=== PATIENT | male | born 1965 | race Caucasian/White ===

== ENCOUNTER 2017-04-26 17:17 | Emergency (ER) | payer OTHER ==
[~2017-04-26] VITALS: Ht 182.9 cm; Wt 100.0 kg
[~2017-04-26 17:17] MED LIST: ASPI-535; CLOP75TA19; CRESTOR; LOSA25TA2; METO100T PO
[2017-04-26 17:22] VITALS: Ht 182.9 cm; Wt 100.0 kg
[2017-04-26] MEDS ORDERED: CLIN-73 PO (19:05)
[2017-04-26] MEDS ORDERED: OXYC-209 PO (19:05)
--- NOTE | 2017-04-26 19:13 | ERD ---
ER Documentation Chief Complaint Date/Time DATE: 04/26/17 TIME: 19:09 Chief Complaint Patient here for a medication refill HPI 51-year-old male presents here in emergency department for medication refill, patient has an appointment today for possible refill of his pain medication, is currently taking Percocet for chronic cellulitis, patient has been treated with oral antibiotics, still has half of these antibiotics to home to take. Patient has been seen by wound clinic multiple times, last appointments were last week and this afternoon. Patient's lower extremity pain is chronic pain, throbbing pain 6/10 worse upon touching the area. Patient states that his cellulitis has completely improved after multiple rounds of antibiotics, and the swelling has greatly decreased. ROS All systems reviewed and are negative except as per history of present illness. Medications Home Meds Active Scripts Clindamycin Hcl* (Clindamycin Hcl*) 300 Mg Capsule, 300 MG PO TID for 10 Days, CAP Prov:ESE VIDES NP 04/26/17 Oxycodone HCl/Acetaminophen (Percocet 10-325 mg Tablet) 1 Each Tablet, 1 EACH PO Q6, #15 TAB Prov:ESE VIDES NP 04/26/17 Reported Medications Metoprolol (Lopressor) 100 Mg Tablet, PO BID 03/20/12 [Crestor] 10 MG TABLET No Conflict Check 06/20/10 Losartan Potassium* (Cozaar*) 25 Mg Tablet 06/20/10 Aspirin Ec (Aspir 81) 81 Mg Tablet. 06/20/10 Clopidogrel Bisulfate (Plavix) 75 Mg Tablet 06/20/10 Allergies Allergies: Coded Allergies: benazepril (Verified Allergy, Unknown, 03/20/12) clonidine (Verified Allergy, Unknown, 03/20/12) morphine (Verified Allergy, Unknown, 03/20/12) Uncoded Allergies: HYDRALAZINE (Allergy, Unknown, 06/20/10) PMhx/Soc History of Surgery: Yes (CABG AUG 2011,HEART CATH 2009,PTCA) Anesthesia Reaction: No Hx Neurological Disorder: No Hx Respiratory Disorders: No Hx Cardiac Disorders: Yes (AL,X6) Hx Psychiatric Problems: No Hx Miscellaneous Medical Probl: No Hx Alcohol Use: No Hx Substance Use: No Hx Tobacco Use: No Smoking Status: Never smoker FmHx Family History: No coronary disease, No diabetes, No other Physical Exam Vitals Vital Signs Date Time Temp Pulse Resp B/P Pulse Ox O2 Delivery O2 Flow Rate FiO2 04/26/17 19:11 99 Room Air 04/26/17 17:22 98.4 101 20 124/84 92 Physical Exam GENERAL: The patient is well developed and appropriate for usual state of health, in no apparent distress. CHEST: Clear to auscultation bilaterally. There are no rales, wheezes or rhonchi. HEART: Regular rate and rhythm. No murmurs, clicks, rubs or gallops. No S3 or S4. ABDOMEN: Soft, nontender and nondistended. Good bowel sounds. No rebound or guarding. No gross peritonitis. No gross organomegaly or masses. No Tee sign or McBurney point tenderness. BACK: No midline or flank tenderness. EXTREMITIES: Equal pulses bilaterally. There is no peripheral clubbing, cyanosis or edema. No focal swelling or erythema. Full range of motion. Grossly neurovascularly intact. NEURO: Alert and oriented. Cranial nerves 2-12 intact. Motor strength in all 4 extremities with 5/5 strength. Sensation grossly intact. Normal speech and gait. SKIN: There is induration and erythema and lower extremities, some scabs are noted, healing wounds noted. There is no apparent rash or petechia. The skin is warm and dry. HEMATOLOGIC AND LYMPHATIC: There is no evidence of excessive bruising or lymphedema. No gross cervical, axillary, or inguinal lymphadenopathy. Procedures/MDM Medical decision making: Patient symptoms was likely consistent with chronic cellulitis, patient's pain was different from this. Patient will be given a refill of 15 pills of his Percocet, is advised to see hand touch up painter , and continue to follow-up with the wound care clinic for further management of his chronic cellulitis. Patient will be given clindamycin add on treatment of the cellulitis. No symptoms of any sepsis at this time, patient appears well and seemed in stable. Patient does not have any symptoms of neurovascular compromise. Patient was advised to return to emergency department for high fever , worsening redness or swelling, worsening symptoms. Patient was advised to follow-up with primary care doctor in 2-3 days, see hand touch up painter. Disposition: Home. Stable. Departure Diagnosis: Primary Impression: Chronic cellulitis Additional Impression: Encounter for medication refill Condition: Stable Patient Instructions: Cellulitis Referrals: COMMUNITY CLINICS YOU HAVE RECEIVED A MEDICAL SCREENING EXAM AND THE RESULTS INDICATE THAT YOU DO NOT HAVE A CONDITION THAT REQUIRES URGENT TREATMENT IN THE EMERGENCY DEPARTMENT. FURTHER EVALUATION AND TREATMENT OF YOUR CONDITION CAN WAIT UNTIL YOU ARE SEEN IN YOUR DOCTORS OFFICE WITHIN THE NEXT 1-2 DAYS. IT IS YOUR RESPONSIBILITY TO MAKE AN APPOINTMENT FOR FOLOW-UP CARE. IF YOU HAVE A PRIMARY DOCTOR --you should call your primary doctor and schedule an appointment IF YOU DO NOT HAVE A PRIMARY DOCTOR YOU CAN CALL OUR PHYSICIAN REFERRAL HOTLINE AT IF YOU CAN NOT AFFORD TO SEE A PHYSICIAN YOU CAN CHOSE FROM THE FOLLOWING [facility] [address] [facility] [address] [facility] [address] [facility] [address] [facility] [address] [facility]. [facility] [address] [facility]. [facility] YOU HAVE RECEIVED A MEDICAL SCREENING EXAM AND THE RESULTS INDICATE THAT YOU DO NOT HAVE A CONDITION THAT REQUIRES URGENT TREATMENT IN THE EMERGENCY DEPARTMENT. FURTHER EVALUATION AND TREATMENT OF YOUR CONDITION CAN WAIT UNTIL YOU ARE SEEN IN YOUR DOCTORS OFFICE WITHIN THE NEXT 1-2 DAYS. IT IS YOUR RESPONSIBILITY TO MAKE AN APPOINTMENT FOR FOLOW-UP CARE. IF YOU HAVE A PRIMARY DOCTOR --you should call your primary doctor and schedule and appointment IF YOU DO NOT HAVE A PRIMARY DOCTOR YOU CAN CALL OUR PHYSICIAN REFERRAL HOTLINE AT . IF YOU CAN NOT AFFORD TO SEE A PHYSICIAN YOU CAN CHOSE FROM THE FOLLOWING [facility]: [facility] [address] [place] [address] [facility] [address] [place] [address] [facility] [address] [place] [address] ESE VIDES NP Apr 26, 2017 19:13
== END 2017-04-26 19:57 | disposition home or self-care (01) ==
LOC: FTE 17:17
DX: L03.116 Cellulitis of left lower limb (principal); L03.115 Cellulitis of right lower limb; Z79.01 Long term (current) use of anticoagulants; Z79.82 Long term (current) use of aspirin; Z95.1 Presence of aortocoronary bypass graft
CPT/HCPCS: 99281

== ENCOUNTER 2017-05-05 22:55 | Emergency (ER) | END 2017-05-06 01:43 | disposition home or self-care (01) | DX: G89.4 Chronic pain syndrome (principal); L03.116 Cellulitis of left lower limb; L03.115 Cellulitis of right lower limb; I10 Essential (primary) hypertension; I25.10 Atherosclerotic heart disease of native coronary artery without angina pectoris; Z79.01 Long term (current) use of anticoagulants; Z79.82 Long term (current) use of aspirin; Z95.1 Presence of aortocoronary bypass graft | CPT/HCPCS: Z7502; Z7610 ==

== ENCOUNTER 2017-05-08 23:19 | Inpatient (IN) | payer OTHER ==
[~2017-05-08] VITALS: Ht 182.9 cm; Wt 98.5 kg
[~2017-05-08 23:19] MED LIST changes: +CLIN-73 PO; +METO-104; +OXYC-209 PO
[2017-05-09] VITALS (11 sets, daily range): BP systolic 96–118; BP diastolic 56–84; PULSE 77–101; RESP 16–20; Ht 182.9 cm; Wt 98.5 kg
[2017-05-09] MEDS ORDERED: ACETAMINOPHEN 325 MG TAB PO PRN (03:30)
[2017-05-09] MEDS ORDERED: LEVALBUTEROL (NEB) 0.63 MG/3 ML AMP HHN PRN (03:30)
[2017-05-09] MEDS ORDERED: ONDANSETRON 4 MG INJ IV PRN (03:30)
[2017-05-09] MEDS ORDERED: NACL 0.9% 3 ML SYG IV SCH (03:30)
[2017-05-09] MEDS ORDERED: VANCOMYCIN IV PER PHARMACY XX SCH (03:30)
[2017-05-09] MEDS ORDERED: NITROGLYCERIN (SL) 0.4 MG TAB SL PRN (03:30)
[2017-05-09] MEDS ORDERED: IPRATROPIUM (NEB) 0.5 MG/2.5 ML AMP NEB PRN (03:30)
[2017-05-09] MEDS ORDERED: VANCOMYCIN 2 GM in SOD CHLORIDE 0.9% 500 ML IVPB SCH (05:00)
[2017-05-09] MEDS: OXYCODONE/ACETAMINOPHEN (10/325) TAB PO PRN ×3 (05:20→20:22)
--- NOTE | 2017-05-09 07:02 | HP ---
Date/Time of Note Date/Time of Note DATE: 05/09/17 TIME: 06:45 Assessment/Plan VTE Prophylaxis VTE Prophylaxis Intervention: heparin Lines/Catheters IV Catheter Type (from [facility]): [place] Urinary Cath still in place: No Assessment/Plan Assessment/Plan 1. Bilateral lower extremity cellulitis -IV antibiotic -Follow-up culture results -ID consult -Pain management 2. History of CAD with CABG as well as PTCA with stent 7 -Continue cardiac medications including dual antiplatelet therapy -2D echo -Cardiology consult 3. Ischemic cardiomyopathy, with EF of 25-30% (per patient) -Continue cardiac medications -We will start Lasix -Chest x-ray and a 2D echo -Cardiology consult 4. Acute versus chronic kidney disease -Creatinine 1.43 at the outside hospital - will check BMP in a.m. -Renal ultrasound and nephrology consult as needed HPI/ROS Admit Date/Time Admit Date/Time May 09, 2017 at 02:20 Hx of Present Illness This is a 51-year-old male with a history of CAD with CABG, PTCA with stent 7, ischemic cardiomyopathy with EF of 25-30% (per patient). Patient initially presented to an outside hospital complaining of bilateral lower extremity infection, pain and itching. He was transferred to [facility] for insurance reasons. He said in July of last year, he noticed redness, scaling as well as open wounds with yellowish draining fluid in the proximal part of both shins that has been progressively getting worse and now includes the entire shins. He said he has been treated by different doctors ( mainly because of insurance reasons) with initial improvement of the infection, however now it has been progressively getting worse. He was diagnosed with a staph infection. He reported pain and intractable itching which he states only responds to [place] or similar medication but not Benadryl. Because of pain, he has been using a wheelchair. At the outside hospital, labs shows a BUN of 21, creatinine 1.43. He was afebrile and her WBC was 7.2. Chest x-ray, per the ER physician showed pulmonary vascular congestion. BNP was 1608. He reported chronic shortness of breath is, worse on exertion. Denied chest pain, fever/chills, nausea/vomiting. . PMH/Family/Social Past Medical History Medical History: congestive heart failure, coronary artery disease Past Surgical History Past Surgical Hx: coronary bypass surgery Social History Alcohol Use: none Smoking Status: Never smoker Drug Use: none Exam/Review of Systems Vital Signs Vitals Vital Signs Date Time Temp Pulse Resp B/P Pulse Ox O2 Delivery O2 Flow Rate FiO2 05/09/17 04:13 95 05/09/17 04:09 98.2 19 112/64 95 05/09/17 02:41 Room Air Intake and Output 05/08/17 05/08/17 05/09/17 15:00 23:00 07:00 Intake Total 150 ml Output Total 150 ml Balance 0 ml Exam Constitutional: other (Patient sitting at the age of bed. He looks in distress due to lower extremity pain and itching) Head: atraumatic, normocephalic Eyes: EOMI, PERRL Respiratory: clear to auscultation, normal air movement Cardiovascular: nl pulses, regular rate and rhythm Gastrointestinal: non-tender, soft Extremities: other (Bilateral lower extremity pains pitting edema as well as erythema with excoriation, scaling, weeping yellowish fluid) Medications Medications Current Medications Ondansetron HCl (Zofran Inj) 4 mg Q6H PRN IV NAUSEA AND/OR VOMITING; Start at 03:30 Nitroglycerin (Nitroglycerin (Sl Tab) 0.4 Mg) 1 tab Q5M PRN SL CHEST PAIN; Start 05/09/17 at 03:30 Acetaminophen (Tylenol Tab) 650 mg Q6H PRN PO PAIN LEVEL 1-3 OR FEVER; Start at 03:30 Magnesium Hydroxide (Milk Of Mag) 30 ml DAILY PRN PO CONSTIPATION; Start at 03:30 Heparin Sodium (Porcine) (Heparin (5000 Units/0.5 ml)) 5,000 unit Q12 SC ; Start 05/09/17 at 09:00 Aspirin (Halfprin) 81 mg DAILY PO ; Start 05/09/17 at 09:00 Clopidogrel Bisulfate (plaVIX) 75 mg DAILY PO ; Start 05/09/17 at 09:00 Losartan Potassium (Cozaar) 25 mg DAILY PO ; Start 05/09/17 at 09:00 Metoprolol Tartrate (Lopressor) 25 mg BID PO ; Start 05/09/17 at 09:00 Oxycodone/ Acetaminophen (Endocet (10/ 325)) 1 tab Q6H PRN PO PAIN Last administered on 05/09/17 05:20; Admin Dose 1 TAB; Start 05/09/17 at 04:00 Furosemide (Lasix) 20 mg DAILY PO ; Start 05/09/17 at 09:00 Atorvastatin Calcium 20 mg 20 mg HS PO ; Start 05/09/17 at 21:00 Vancomycin HCl/ Sodium Chloride (Vancocin/NS) 500 ml @ 125 mls/hr ONCE IVPB Last administered on 05/09/17 05:49; Admin Dose 125 MLS/HR; Start 05/09/17 at 05:00; Stop 05/09/17 at 08:59 AJAY PORTILLO MD May 09, 2017 06:57
[2017-05-09 07:51] LABS: BASOPHIL # 0.1 10^3/ul (0.0-0.1); BASOPHILS % 0.7 % (0.0-2.0); EOSINOPHILS # 0.2 10^3/ul (0.0-0.5); EOSINOPHILS % 2.2 % (0.0-7.0); HEMATOCRIT 44.1 % (42.0-52.0); HEMOGLOBIN 13.4 g/dl (14.0-18.0); LYMPHOCYTES # 1.9 10^3/ul (0.8-2.9); LYMPHOCYTES % 28.2 % (15.0-51.0); MEAN CORPUSCULAR HEMOGLOBIN 24.5 pg (29.0-33.0); MEAN CORPUSCULAR HGB CONC 30.4 g/dl (32.0-37.0); MEAN CORPUSCULAR VOLUME 80.8 fl (82.0-101.0); MONOCYTES % 13.9 % (0.0-11.0); NEUTROPHILS % 54.7 % (39.0-77.0); PLATELET COUNT 276 10^3/UL (140-415); RED BLOOD COUNT 5.46 10^6/ul (4.70-6.10); RED CELL DISTRIBUTION WIDTH 17.3 % (11.5-14.5); WHITE BLOOD COUNT 6.8 10^3/ul (4.8-10.8)
[2017-05-09 08:16] LABS: ALANINE AMINOTRANSFERASE 19 IU/L (13-69); ALBUMIN 3.4 g/dl (3.3-4.9); ALBUMIN/GLOBULIN RATIO 0.82; ALKALINE PHOSPHATASE 146 IU/L (42-121); ANION GAP 19 (8-16); ASPARTATE AMINO TRANSFERASE 21 IU/L (15-46); BILIRUBIN,INDIRECT 0.8 mg/dl (0-1.1); BILIRUBIN,TOTAL 0.8 mg/dl (0.2-1.3); BLOOD UREA NITROGEN 24 mg/dl (7-20); CARBON DIOXIDE 36 mmol/L (21-31); CHLORIDE 89 mmol/L (97-110); CHOL/HDL RATIO 5.3 RATIO; CHOLESTEROL 86 mg/dl (100-200); CREATININE 1.26 mg/dl (0.61-1.24); GLUCOSE 86 mg/dl (70-220); HDL CHOLESTEROL 16 mg/dl (28-71); MAGNESIUM 2.2 mg/dl (1.7-2.5); POTASSIUM 3.4 mmol/L (3.5-5.1); SODIUM 141 mmol/L (135-144); TOTAL PROTEIN 7.5 g/dl (6.1-8.1); TRIGLYCERIDES 89 mg/dl (0-149)
[2017-05-09 08:28] LABS: TROPONIN-I < 0.012 ng/ml (0.00-0.12)
[2017-05-09] MEDS: LOSARTAN 25 MG TAB PO SCH (08:48)
[2017-05-09] MEDS: ASPIRIN (EC) 81 MG TAB PO SCH (08:50)
[2017-05-09] MEDS: CLOPIDOGREL 75 MG TAB PO SCH (08:50)
[2017-05-09] MEDS: HEPARIN 5,000 UNIT/0.5 ML VIAL SC SCH ×2 (08:55→20:26)
[2017-05-09] MEDS ORDERED: METOPROLOL 100 MG TAB PO SCH (09:00)
[2017-05-09] MEDS ORDERED: FUROSEMIDE 20 MG TAB PO SCH (09:00)
[2017-05-09] MEDS ORDERED: ALBUMIN HUMAN 25% 50 ML IV ONE (09:30)
--- NOTE | 2017-05-09 11:41 | CONS ---
Date/Time of Note Date/Time of Note DATE: 05/09/17 TIME: 11:40 Consultation Date/Type/Reason Admit Date/Time May 09, 2017 at 02:20 Date of Consultation: May 09, 2017 Type of Consultation: ID Reason for Consultation antibiotic management Past Medical History Medical History: congestive heart failure, coronary artery disease Past Surgical History Past Surgical Hx: coronary bypass surgery Social History Alcohol Use: none Smoking Status: Never smoker Drug Use: none Exam/Review of Systems Vital Signs Vitals Vital Signs Date Time Temp Pulse Resp B/P Pulse Ox O2 Delivery O2 Flow Rate FiO2 05/09/17 08:30 100 05/09/17 07:46 98.4 20 118/84 98 05/09/17 02:41 Room Air Intake and Output 05/08/17 05/08/17 05/09/17 14:59 22:59 06:59 Intake Total 150 ml Output Total 150 ml Balance 0 ml Results Result Diagram: 05/09/17 0718 05/09/17 0718 Results 24 hrs Laboratory Tests Test 05/09/17 07:18 White Blood Count 6.8 Red Blood Count 5.46 Hemoglobin 13.4 L Hematocrit 44.1 Mean Corpuscular Volume 80.8 L Mean Corpuscular Hemoglobin 24.5 L Mean Corpuscular Hemoglobin Concent 30.4 L Red Cell Distribution Width 17.3 H Platelet Count 276 Mean Platelet Volume 10.0 Neutrophils % 54.7 Lymphocytes % 28.2 Monocytes % 13.9 H Eosinophils % 2.2 Basophils % 0.7 Nucleated Red Blood Cells % 0.0 Neutrophils # (Manual) 4 Lymphocytes # 1.9 Monocytes # 1.0 H Eosinophils # 0.2 Basophils # 0.1 Nucleated Red Blood Cells # 0.0 Sodium Level 141 Potassium Level 3.4 L Chloride Level 89 L Carbon Dioxide Level 36 H Anion Gap 19 H Blood Urea Nitrogen 24 H Creatinine 1.26 H Glucose Level 86 Hemoglobin A1c 6.2 H Calcium Level 9.0 Magnesium Level 2.2 Total Bilirubin 0.8 Direct Bilirubin 0.00 Indirect Bilirubin 0.8 Aspartate Amino Transf (AST/SGOT) 21 Alanine Aminotransferase (ALT/SGPT) 19 Alkaline Phosphatase 146 H Troponin I < 0.012 Total Protein 7.5 Albumin 3.4 Globulin 4.10 H Albumin/Globulin Ratio 0.82 Triglycerides Level 89 Cholesterol Level 86 L LDL Cholesterol, Calculated 52 HDL Cholesterol 16 L Cholesterol/HDL Ratio 5.3 Medications Medications Current Medications Ondansetron HCl (Zofran Inj) 4 mg Q6H PRN IV NAUSEA AND/OR VOMITING Last administered on 05/09/17 08:55; Admin Dose 4 MG; Start 05/09/17 at 03:30 Nitroglycerin (Nitroglycerin (Sl Tab) 0.4 Mg) 1 tab Q5M PRN SL CHEST PAIN; Start 05/09/17 at 03:30 Acetaminophen (Tylenol Tab) 650 mg Q6H PRN PO PAIN LEVEL 1-3 OR FEVER; Start at 03:30 Magnesium Hydroxide (Milk Of Mag) 30 ml DAILY PRN PO CONSTIPATION; Start at 03:30 Heparin Sodium (Porcine) (Heparin (5000 Units/0.5 ml)) 5,000 unit Q12 SC ; Start 05/09/17 at 09:00 Aspirin (Halfprin) 81 mg DAILY PO Last administered on 05/09/17 08:50; Admin Dose 81 MG; Start 05/09/17 at 09:00 Clopidogrel Bisulfate (plaVIX) 75 mg DAILY PO Last administered on 05/09/17 08 :50; Admin Dose 75 MG; Start 05/09/17 at 09:00 Losartan Potassium (Cozaar) 25 mg DAILY PO Last administered on 05/09/17 08:48 ; Admin Dose 25 MG; Start 05/09/17 at 09:00 Metoprolol Tartrate (Lopressor) 25 mg BID PO Last administered on 05/09/17 08: 48; Admin Dose 25 MG; Start 05/09/17 at 09:00 Oxycodone/ Acetaminophen (Endocet (10/ 325)) 1 tab Q6H PRN PO PAIN Last administered on 05/09/17 05:20; Admin Dose 1 TAB; Start 05/09/17 at 04:00 Atorvastatin Calcium 20 mg 20 mg HS PO ; Start 05/09/17 at 21:00 Vancomycin HCl/ Sodium Chloride (Vancocin/NS) 250 ml @ 83.333 mls/ hr Q12H IVPB ; Start 05/09/17 at 18:00 Miscellaneous Information VANCOMYCIN TROUGH AT 1700 ONCE ONCE XX ; Start 05/10/17 at 17:00; Stop 05/10/17 at 17:01 Cefepime HCl (Maxipime 1gm/50 ml (Pmx)) 50 ml @ 100 mls/hr Q12 IVPB ; Start at 10:30 JACKIE CROWLEY MD May 09, 2017 11:41
[2017-05-09] MEDS: CEFEPIME 1GM/50 ML (PMX) 50 ML IVPB SCH ×2 (12:32→20:23)
--- NOTE | 2017-05-09 12:36 | CONS ---
DATE OF ADMISSION: 05/09/2017 DATE OF CONSULTATION: 05/09/2017 REASON FOR CONSULTATION: Antibiotic management. HISTORY OF PRESENT ILLNESS: Tomi is a 51-year-old male with numerous problems who comes in with bilateral lower extremity cellulitis and is being seen for antibiotic management. PAST PROBLEMS INCLUDE: 1. Coronary artery disease. 2. Status post coronary artery bypass graft with PTCA with stents x7. 3. Ischemic cardiomyopathy with ejection fraction of 25-30 percent. 4. The patient initially presented to an outside hospital complaining of bilateral lower extremity infection with pain who was transferred to [facility]. Last July, he noticed some redness and scaling as well as open wounds with yellowish draining fluid in the proximal part of both shins. This has been getting progressively worse and now includes the entire area. He has been treated numerous times, but the infection has been getting progressively worse. He has been in a wheelchair as a result. In the outside hospital, his white count was 7.2. BUN and creatinine was 21/1.43. Here, hiss white count 6.8, H and H of 13.4, 44.1, platelet count 276,000. BUN and creatinine is 24/1.26. Microbiology is pending. Patient was started on vancomycin and cefepime. Patient is also on Lasix. PAST MEDICAL HISTORY: Operations as outlined. FAMILY HISTORY: Noncontributory. SOCIAL HISTORY: Does not smoke, drink, or abuse drugs. ALLERGIES: NONE TO PENICILLIN, SULFA, OR FOODS. MEDICATION: Per chart. REVIEW OF SYSTEMS: As per HPI. PHYSICAL EXAMINATION: GENERAL: Patient is a well-developed, well-nourished, chronically ill-appearing male, who looks somewhat in distress due to lower extremity pain. VITAL SIGNS: Stable. He is afebrile. SKIN: Without generalized rash. HEENT: Within normal limits. NECK: Supple. Lymph nodes nonpalpable. CHEST: Decreased breath sounds at the bases. HEART: Without murmur or gallop. ABDOMEN: Soft, nontender, without organomegaly, splenomegaly or masses. EXTREMITIES: He has bilateral lower extremity pain, pitting edema, erythema, excoriations scaling, weeping yellowish fluid. RECTAL/GENITAL: Deferred. NEUROLOGICAL: No focal neurological abnormalities. IMPRESSION AND PLAN: Patient comes in now with cardiomyopathy with swollen lower extremities, and with bilateral lower extremity cellulitis. He is on vancomycin and cefepime. At some point, we will just simplify his antibiotic therapy. For now, will continue. He should have wound cultures done, which were done which were ordered, and blood cultures were ordered. MRSA screen has been ordered. I will dictate my findings to the hospitalist and Dr. Reyes. Dictated By: Nacho Pedro MD JD/pepper/delfina /Document#: [id number]
--- NOTE | 2017-05-09 14:07 | EN ---
Date/Time of Note Date/Time of Note DATE: 05/09/17 TIME: 14:06 Event Note Medicine Medicine Event Note Follow-up as per directions of hospitals. The patient has a history of significant heart disease with an overwhelmingly positive family history of heart disease. Specifically no member of his family's live past 53. At this time he is 51 years of age. In addition the patient is suffering from a great deal of frustration and appears to have some significant dysthymia/depression. I am going to adjust his medications to try and get him using a regimen that he is at least seen before so is a bit more comfortable with the concept SALIMA LAZARO MD May 09, 2017 14:07
[2017-05-09] MEDS ORDERED: SPIRONOLACTONE 25 MG TAB PO ONE (14:30)
--- NOTE | 2017-05-09 17:23 | RADRPT ---
PROCEDURE: Chest radiograph CLINICAL INDICATION: Congestive heart failure. COMPARISON: None available for review. TECHNIQUE: PA and lateral views. FINDINGS: The right diaphragm is elevated but the right heart border remains sharp, findings which may be due to subpulmonic effusion. Right upper lung and left lungs are clear. Cardiomegaly. Median sternotomy with coronary arterial bypass grafts. At least two coronary stents have been placed. No suspicious bone lesion. IMPRESSION: Cardiomegaly with probable moderate sized right pleural effusion. RPTAT: PP Physician Tatiana Date Time Electronically viewed and signed by Physician Tatiana on 05/09/2017 17:23 LG/
[2017-05-09] MEDS: VANCOMYCIN 1.25 GM in SOD CHLORIDE 0.9% 250 ML IVPB SCH (18:11)
[2017-05-09] MEDS: FUROSEMIDE 20 MG TAB PO SCH (18:12)
[2017-05-09] MEDS: TERBINAFINE 250 MG TAB PO SCH (20:23)
[2017-05-09] MEDS: ATORVASTATIN 40 MG TAB PO SCH (20:23)
[2017-05-09] MEDS ORDERED: ATORVASTATIN 20 MG TAB PO SCH (21:00)
[2017-05-10] VITALS (13 sets, daily range): BP systolic 85–118; BP diastolic 50–76; PULSE 84–96; RESP 18–20
[2017-05-10] MEDS: OXYCODONE/ACETAMINOPHEN (10/325) TAB PO PRN ×3 (03:33→20:19)
[2017-05-10] MEDS: VANCOMYCIN 1.25 GM in SOD CHLORIDE 0.9% 250 ML IVPB SCH (05:09)
[2017-05-10] MEDS: FUROSEMIDE 20 MG TAB PO SCH ×2 (05:10→18:00)
[2017-05-10 08:14] LABS: HEMATOCRIT 41.8 % (42.0-52.0); HEMOGLOBIN 12.8 g/dl (14.0-18.0); MEAN CORPUSCULAR HEMOGLOBIN 24.6 pg (29.0-33.0); MEAN CORPUSCULAR HGB CONC 30.6 g/dl (32.0-37.0); MEAN CORPUSCULAR VOLUME 80.2 fl (82.0-101.0); PLATELET COUNT 291 10^3/UL (140-415); RED BLOOD COUNT 5.21 10^6/ul (4.70-6.10); RED CELL DISTRIBUTION WIDTH 17.3 % (11.5-14.5); WHITE BLOOD COUNT 7.8 10^3/ul (4.8-10.8)
[2017-05-10 08:15] LABS: BASOPHIL # 0.1 10^3/ul (0.0-0.1); BASOPHILS % 0.6 % (0.0-2.0); EOSINOPHILS # 0.2 10^3/ul (0.0-0.5); EOSINOPHILS % 2.5 % (0.0-7.0); LYMPHOCYTES # 1.4 10^3/ul (0.8-2.9); LYMPHOCYTES % 18.6 % (15.0-51.0); MEAN PLATELET VOLUME 9.9 fl (7.4-10.4); MONOCYTE # 1.1 10^3/ul (0.3-0.9); MONOCYTES % 13.5 % (0.0-11.0); NEUTROPHILS % 64.4 % (39.0-77.0)
[2017-05-10 08:25] LABS: CALCIUM 8.6 mg/dl (8.4-10.2); CREATININE 1.48 mg/dl (0.61-1.24); PHOSPHORUS 4.6 mg/dl (2.5-4.9); POTASSIUM 3.7 mmol/L (3.5-5.1)
[2017-05-10] MEDS: CEFEPIME 1GM/50 ML (PMX) 50 ML IVPB SCH (08:47)
[2017-05-10] MEDS: CLOPIDOGREL 75 MG TAB PO SCH (08:48)
[2017-05-10] MEDS: TERBINAFINE 250 MG TAB PO SCH ×2 (08:48→20:19)
[2017-05-10] MEDS: SPIRONOLACTONE 25 MG TAB PO SCH (08:52)
[2017-05-10] MEDS: LOSARTAN 25 MG TAB PO SCH (08:52)
[2017-05-10] MEDS: ASPIRIN (EC) 81 MG TAB PO SCH (08:53)
[2017-05-10] MEDS: HEPARIN 5,000 UNIT/0.5 ML VIAL SC SCH ×2 (09:00→20:25)
[2017-05-10] MEDS: MAGNESIUM HYDROXIDE 30ML CUP PO PRN (12:05)
--- NOTE | 2017-05-10 13:03 | RADRPT ---
Echocardiogram Report Patient Name: MITCHELL FLYNN Gender: Male Date: 1965 Study Date: 10-May-2017 Stopper Maker: marcus Murphy [facility] Location: 5560 Ref. Physician: AJAY PORTILLO Quality: Adequate Procedures: Transthoracic echocardiogram with complete 2D, M-Mode, and doppler examination. Indications: Stroke. 2D/M Mode Doppler Measurement Value Normal Ranges Measurement Value Normal Ranges LVIDd 2D 5.3 3.5 - 5.6 cm AV Peak Corey 1.2 m/sec LVIDs 2D 4.9 2.1 - 4.1 cm AV Peak PG 6.0 mmHg FS 2D 6.7 % LVOT Peak Corey 0.9 m/sec LVPWd 2D 1.3 0.6 - 1.1 cm LVOT Peak PG 3.0 mmHg IVSd 2D 1.3 0.6 - 1.1 cm MV E Peak Corey 1.3 m/sec IVS/LVPW 2D 1.0 MR Peak PG 65.0 mmHg AoR Diam 2D 2.6 2.0 - 3.7 cm MR Peak Corey 4.0 m/sec LA/Ao 2D 2 0 - 1 TR Peak Corey 2.5 m/sec EDV 2D 145.0 cm3 TR Peak PG 25.0 mmHg ESV 2D 118.0 cm3 RVSP 33.0 mmHg LA Dimen 2D 5.0 2.3 - 4.0 cm Findings Left Ventricle: Normal left ventricular systolic function. Normal left ventricular cavity size. Mild concentric left ventricular hypertrophy. Moderate global left ventricular systolic dysfunction. Ejection fraction is visually estimated at 30 %. Abnormal Diastolic Function. Right Ventricle: Moderate enlargement of right ventricle. Left Atrium: There is severe enlargement of left atrium. Right Atrium: There is severe enlargement of right atrium. Mitral Valve: Mild mitral leaflet calcification. Mild mitral annular calcification. Mild to moderate mitral valve regurgitation. Aortic Valve: Normal appearance of the aortic valve. No significant aortic stenosis or insufficiency. Tricuspid Valve: Normal appearance of the tricuspid valve. Estimated peak PA systolic pressure 33 mmHg. There is mild to moderate tricuspid regurgitation. Pericardium: Normal pericardium with no significant pericardial effusion. Aorta: Normal aortic root. IVC: Dilated inferior vena cava with poor inspiratory collapse consistent with elevated right atrial pressures. Conclusions 1.Normal left ventricular systolic function. Normal left ventricular cavity size. Mild concentric left ventricular hypertrophy. Moderate global left ventricular systolic dysfunction. Ejection fraction is visually estimated at 30 %. Abnormal Diastolic Function. 2.Mild mitral leaflet calcification. Mild mitral annular calcification. Mild to moderate mitral valve regurgitation. 3.Normal appearance of the aortic valve. No significant aortic stenosis or insufficiency. 4.Normal appearance of the tricuspid valve. Estimated peak PA systolic pressure 33 mmHg. There is mild to moderate tricuspid regurgitation. 5.Normal pericardium with no significant pericardial effusion. Electronically Signed By: Kay Farley 10-May-2017 13:03:06 -0700 Patient Name: MITCHELL FLYNN Study Date: 10-May-2017 [id number]
--- NOTE | 2017-05-10 16:19 | RADRPT ---
PROCEDURE: US bilateral lower extremity veins. CLINICAL INDICATION: Bilateral leg pain and swelling. TECHNIQUE: Multiple longitudinal and transverse images of the bilateral lower extremity veins were obtained with hare scale and color Doppler imaging. The common femoral vein, femoral vein, and popl iteal vein were evaluated. 2D grayscale measurements with compression sonography, color Doppler, and pulsed Doppler with augmentation. COMPARISON: No prior studies are available for comparison. FINDINGS: The bilateral common femoral, femoral and popliteal veins are normally compressible throughout. Col or flow demonstrates normal filling of the vessels. Normal waveforms are visualized and there is no rmal response to augmentation. There is pulsatile venous flow which may indicate right heart failu re or tricuspid insufficiency. IMPRESSION: 1. No evidence of deep vein thrombosis involving either lower extremity. 2. Pulsatile venous flow which may indicate right heart failure or tricuspid insufficiency. RPTAT: QQ .Jose Holder MD, Date Time Electronically viewed and signed by .Jose Holder MD, on 05/10/2017 16:19 .R/
--- NOTE | 2017-05-10 16:39 | PN ---
Date/Time of Note Date/Time of Note DATE: 05/10/17 TIME: 16:36 Assessment/Plan VTE Prophylaxis VTE Prophylaxis Intervention: SCD's Lines/Catheters IV Catheter Type (from Nrsg): Saline Lock Urinary Cath still in place: No Assessment/Plan Assessment/Plan 51 yo M with chronic LE ulcers admitted for chronic LE ulcers PLAN wound care consult no arlene evidence of cellulitis on my clinical evaluation at this time. will stop cefepime, likely stop vanc in AM given leg swelling obtain dopplers to r/o DVT consider vascular cs for venous eval as etio of chronic wounds unclear (?venous stasis) I am honestly not sure of the clinical significance of these wound cultures cont pain control #chronic CHF: EF here 30% cont home meds as EF not different from baseline, no compelling indication for inpatient cardiology eval cont home meds Subjective 24 Hr Interval Summary Free Text/Dictation Pt states legs overall look unchanged from yesterday. States he was doing well with previous wound care team when he was getting regular Unna boots though recently insurance changed and wound care hasn't been as good Exam/Review of Systems Vital Signs Vitals Vital Signs Date Time Temp Pulse Resp B/P Pulse Ox O2 Delivery O2 Flow Rate FiO2 05/10/17 16:31 84 05/10/17 15:49 97.6 20 94/64 94 05/09/17 02:41 Room Air Intake and Output 05/09/17 05/09/17 05/10/17 15:00 23:00 07:00 Intake Total 1140 ml 600 ml Output Total 575 ml 450 ml Balance 565 ml 150 ml Exam nad, sitting at side of bed no mrg lungs clear abd soft bl LEs below knees with mild diffuse erythema, 2+ swelling to knees, multiple 1- 2 cm eschars with serous drainage Results Result Diagram: 05/10/17 0744 05/10/17 0744 Results 24 hrs Laboratory Tests Test 05/10/17 07:44 White Blood Count 7.8 Red Blood Count 5.21 Hemoglobin 12.8 L Hematocrit 41.8 L Mean Corpuscular Volume 80.2 L Mean Corpuscular Hemoglobin 24.6 L Mean Corpuscular Hemoglobin Concent 30.6 L Red Cell Distribution Width 17.3 H Platelet Count 291 Mean Platelet Volume 9.9 Neutrophils % 64.4 Lymphocytes % 18.6 Monocytes % 13.5 H Eosinophils % 2.5 Basophils % 0.6 Nucleated Red Blood Cells % 0.0 Neutrophils # (Manual) 5 Lymphocytes # 1.4 Monocytes # 1.1 H Eosinophils # 0.2 Basophils # 0.1 Nucleated Red Blood Cells # 0.0 Sodium Level 136 Potassium Level 3.7 Chloride Level 95 L Carbon Dioxide Level 30 Anion Gap 15 Blood Urea Nitrogen 29 H Creatinine 1.48 H Glucose Level 89 Calcium Level 8.6 Phosphorus Level 4.6 Magnesium Level 2.0 Medications Medications Current Medications Ondansetron HCl (Zofran Inj) 4 mg Q6H PRN IV NAUSEA AND/OR VOMITING Last administered on 05/09/17 08:55; Admin Dose 4 MG; Start 05/09/17 at 03:30 Nitroglycerin (Nitroglycerin (Sl Tab) 0.4 Mg) 1 tab Q5M PRN SL CHEST PAIN; Start 05/09/17 at 03:30 Acetaminophen (Tylenol Tab) 650 mg Q6H PRN PO PAIN LEVEL 1-3 OR FEVER; Start at 03:30 Magnesium Hydroxide (Milk Of Mag) 30 ml DAILY PRN PO CONSTIPATION Last administered on 05/10/17 12:05; Admin Dose 30 ML; Start 05/09/17 at 03:30 Heparin Sodium (Porcine) (Heparin (5000 Units/0.5 ml)) 5,000 unit Q12 SC Last administered on 05/09/17 20:26; Admin Dose 5,000 UNIT; Start 05/09/17 at 09:00 Aspirin (Halfprin) 81 mg DAILY PO Last administered on 05/10/17 08:53; Admin Dose 81 MG; Start 05/09/17 at 09:00 Clopidogrel Bisulfate (plaVIX) 75 mg DAILY PO Last administered on 05/10/17 08 :48; Admin Dose 75 MG; Start 05/09/17 at 09:00 Losartan Potassium (Cozaar) 25 mg DAILY PO Last administered on 05/10/17 08:52 ; Admin Dose 25 MG; Start 05/09/17 at 09:00 Oxycodone/ Acetaminophen 1 tab 1 tab Q6H PRN PO PAIN Last administered on 09:53; Admin Dose 1 TAB; Start 05/09/17 at 04:00 Vancomycin HCl/ Sodium Chloride (Vancocin/NS) 250 ml @ 83.333 mls/ hr Q12H IVPB Last administered on 05/10/17 05:09; Admin Dose 83.333 MLS/HR; Start at 18:00 Miscellaneous Information (*Rx Drug Level Order Reminder*) VANCOMYCIN TROUGH AT 1700 ONCE ONCE XX ; Start 05/10/17 at 17:00; Stop 05/10/17 at 17:01 Atorvastatin Calcium (Lipitor) 40 mg HS PO Last administered on 05/09/17 20:23 ; Admin Dose 40 MG; Start 05/09/17 at 21:00 Carvedilol (Coreg) 6.25 mg BID PO Last administered on 05/10/17 08:53; Admin Dose 6.25 MG; Start 05/09/17 at 21:00 Spironolactone (Aldactone) 25 mg DAILY PO Last administered on 05/10/17 08:52 ; Admin Dose 25 MG; Start 05/10/17 at 09:00 Terbinafine HCl (Lamisil) 250 mg BID PO Last administered on 05/10/17 08:48; Admin Dose 250 MG; Start 05/09/17 at 21:00; Stop 05/16/17 at 20:59 Miscellaneous Information Patients own medicat... BID@10,16 XX ; Start 05/10/17 at 10:00 Cefepime HCl (Maxipime 1gm/50 ml (Pmx)) 50 ml @ 100 mls/hr Q12 IVPB ; Start at 21:00 Silver Sulfadiazine (Thermazene 1% 25 Gm) 1 applic BID TOP ; Start 05/10/17 at 15:00 LI GOODWIN MD May 10, 2017 16:39
[2017-05-10] MEDS: SILVER SULFADIAZINE 1% 25 GM CR TOP SCH ×2 (17:51→22:16)
--- NOTE | 2017-05-10 18:30 | PN ---
DATE: 05/10/2017 SUBJECTIVE DATA: No events overnight. The patient is alert, looks comfortable. Denies pain. No fevers. LABORATORY AND DIAGNOSTIC DATA: WBC 7.8, no shift, no bounce. BUN 29, creatinine 1.48. Blood cultures remain negative. MRSA swab negative. Wound culture growing Staph species and gram-negative rods. ANTIMICROBIALS: Antimicrobials: Vancomycin and cefepime. PHYSICAL EXAMINATION: Well-developed, middle-aged white man, who is awake, in no distress. HEENT: Head atraumatic, normocephalic. Sclerae anicteric. Buccal mucosa dry. NECK: Supple. CHEST: Rise symmetrical. Breath sounds diminished at the bases. HEART: S1, S2. ABDOMEN: Soft, bowel sounds present. EXTREMITIES: With bilateral lower extremity edema. Erythema and multiple lesions. ASSESSMENT: 1. Bilateral lower extremity cellulitis. 2. History of coronary artery bypass graft and percutaneous transluminal coronary angioplasty with 7 stents. 3. Ischemic cardiomyopathy with ejection fraction of 25, 30 percent. 4. Obesity. 5. Acute renal failure. Possibly on chronic kidney disease. PLAN: We will continue patient on IV vancomycin. We will keep him on either cefepime on Rocephin to cover gram-negative rods that are growing in his wounds. We will start him on Silvadene topical to bilateral lower extremities. Check ultrasound of lower extremities. Keep lower extremities elevated. Further recommendations per clinical course. Dictated By: Doc Ward NP /pepper/ /Document#: [id number]
[2017-05-10] MEDS: ATORVASTATIN 40 MG TAB PO SCH (20:20)
[2017-05-10] MEDS ORDERED: CEFEPIME 1GM/50 ML (PMX) 50 ML IVPB SCH (21:00)
[2017-05-11 02:00] VITALS: BP 105/54; RESP 16
[2017-05-11 06:12] LABS: CALCIUM 8.9 mg/dl (8.4-10.2); CREATININE 1.35 mg/dl (0.61-1.24)
[2017-05-11] MEDS: FUROSEMIDE 20 MG TAB PO SCH ×2 (06:18→17:39)
[2017-05-11] MEDS: OXYCODONE/ACETAMINOPHEN (10/325) TAB PO PRN ×3 (06:21→19:50)
[2017-05-11 08:11] VITALS: BP 121/87; RESP 16
[2017-05-11] MEDS: HEPARIN 5,000 UNIT/0.5 ML VIAL SC SCH ×2 (09:00→20:24)
[2017-05-11] MEDS ORDERED: VANCOMYCIN 1.25 GM in SOD CHLORIDE 0.9% 250 ML IVPB SCH (09:00)
[2017-05-11] MEDS: ASPIRIN (EC) 81 MG TAB PO SCH (09:08)
[2017-05-11] MEDS: TERBINAFINE 250 MG TAB PO SCH ×2 (09:08→20:22)
[2017-05-11] MEDS: SILVER SULFADIAZINE 1% 25 GM CR TOP SCH ×2 (09:08→20:24)
[2017-05-11] MEDS: SPIRONOLACTONE 25 MG TAB PO SCH (09:08)
[2017-05-11] MEDS: CLOPIDOGREL 75 MG TAB PO SCH (09:08)
[2017-05-11] MEDS: LOSARTAN 25 MG TAB PO SCH (09:08)
[2017-05-11 09:11] VITALS: PULSE 88
[2017-05-11] MEDS ORDERED: LEVOFLOXACIN 500 MG TAB PO ONE (14:30)
--- NOTE | 2017-05-11 15:10 | PN ---
Date/Time of Note Date/Time of Note DATE: 05/11/17 TIME: 15:08 Assessment/Plan VTE Prophylaxis VTE Prophylaxis Intervention: SCD's Lines/Catheters IV Catheter Type (from Nrsg): Saline Lock Urinary Cath still in place: No Assessment/Plan Assessment/Plan 51 yo M with chronic LE ulcers admitted for chronic LE ulcers PLAN wound care following vascular cs for eval for venous eval as etio of chronic wounds unclear (? venous stasis) cont pain control #chronic CHF: EF here 30% cont home meds as EF not different from baseline, no compelling indication for inpatient cardiology eval cont home meds Subjective 24 Hr Interval Summary Free Text/Dictation States his IV in his R hand really hurts Exam/Review of Systems Vital Signs Vitals Vital Signs Date Time Temp Pulse Resp B/P Pulse Ox O2 Delivery O2 Flow Rate FiO2 05/11/17 09:11 88 05/11/17 08:11 99.5 16 121/87 96 05/09/17 02:41 Room Air Intake and Output 05/10/17 05/10/17 05/11/17 15:00 23:00 07:00 Intake Total 950 ml 240 ml Output Total 200 ml Balance 950 ml 40 ml Exam nad, sitting up in bed no mrg lungs clear abd soft legs wrapped LE duplex neg for DVT bl Results Result Diagram: 05/10/17 0744 05/11/17 0520 Results 24 hrs Laboratory Tests Test 05/10/17 16:38 05/11/17 05:20 Vancomycin Level Trough 26.1 *H Sodium Level 138 Potassium Level 4.0 Chloride Level 89 L Carbon Dioxide Level 34 H Anion Gap 19 H Blood Urea Nitrogen 31 H Creatinine 1.35 H Glucose Level 88 Calcium Level 8.9 B-Type Natriuretic Peptide 1220 H Medications Medications Current Medications Ondansetron HCl (Zofran Inj) 4 mg Q6H PRN IV NAUSEA AND/OR VOMITING Last administered on 05/09/17t 08:55; Admin Dose 4 MG; Start 05/09/17 at 03:30 Nitroglycerin (Nitroglycerin (Sl Tab) 0.4 Mg) 1 tab Q5M PRN SL CHEST PAIN; Start 05/09/17 at 03:30 Acetaminophen (Tylenol Tab) 650 mg Q6H PRN PO PAIN LEVEL 1-3 OR FEVER; Start at 03:30 Magnesium Hydroxide (Milk Of Mag) 30 ml DAILY PRN PO CONSTIPATION Last administered on 05/10/17 12:05; Admin Dose 30 ML; Start 05/09/17 at 03:30 Heparin Sodium (Porcine) (Heparin (5000 Units/0.5 ml)) 5,000 unit Q12 SC Last administered on 05/09/17 20:26; Admin Dose 5,000 UNIT; Start 05/09/17 at 09:00 Aspirin (Halfprin) 81 mg DAILY PO Last administered on 05/11/17 09:08; Admin Dose 81 MG; Start 05/09/17 at 09:00 Clopidogrel Bisulfate (plaVIX) 75 mg DAILY PO Last administered on 05/11/17 09 :08; Admin Dose 75 MG; Start 05/09/17 at 09:00 Losartan Potassium (Cozaar) 25 mg DAILY PO Last administered on 05/11/17 09:08 ; Admin Dose 25 MG; Start 05/09/17 at 09:00 Oxycodone/ Acetaminophen (Endocet (10/ 325)) 1 tab Q6H PRN PO PAIN Last administered on 05/11/17 13:06; Admin Dose 1 TAB; Start 05/09/17 at 04:00 Atorvastatin Calcium (Lipitor) 40 mg HS PO Last administered on 05/10/17 20:20 ; Admin Dose 40 MG; Start 05/09/17 at 21:00 Carvedilol (Coreg) 6.25 mg BID PO Last administered on 05/11/17 09:09; Admin Dose 6.25 MG; Start 05/09/17 at 21:00 Spironolactone (Aldactone) 25 mg DAILY PO Last administered on 05/11/17 09:08 ; Admin Dose 25 MG; Start 05/10/17 at 09:00 Terbinafine HCl (Lamisil) 250 mg BID PO Last administered on 05/11/17 09:08; Admin Dose 250 MG; Start 05/09/17 at 21:00; Stop 05/16/17 at 20:59 Miscellaneous Information Patients own medicat... BID@10,16 XX ; Start 05/10/17 at 10:00 Silver Sulfadiazine 1 applic 1 applic BID TOP Last administered on 05/11/17 09 :08; Admin Dose 1 APPLIC; Start 05/10/17 at 15:00 Vancomycin HCl/ Sodium Chloride (Vancocin/NS) 250 ml @ 83.333 mls/ hr Q24H IVPB ; Start 05/12/17 at 09:00 Levofloxacin (Levaquin) 500 mg DAILY@06 PO ; Start 05/12/17 at 06:00 LI GOODWIN MD May 11, 2017 15:10
[2017-05-11 15:28] VITALS: BP 99/64; RESP 18
[2017-05-11] MEDS: MAGNESIUM HYDROXIDE 30ML CUP PO PRN (17:35)
--- NOTE | 2017-05-11 19:36 | PN ---
DATE: 05/11/2017 SUBJECTIVE DATA: No events overnight. The patient is alert, lying down comfortably in bed. He is afebrile. Wound culture growing Staph aureus, Acinetobacter baumannii, and Enterobacter cloaca complex, also coag-negative Staph susceptible to Levaquin. Antimicrobials: Patient is on IV vancomycin and Levaquin, and status post cefepime. OBJECTIVE DATA: GENERAL: This is a well-developed, middle aged white man, who is awake in no distress. HEENT: Head atraumatic, normocephalic. Sclerae anicteric. Buccal mucosa pink. NECK: Supple. CHEST: Rise symmetrical. Breath sounds clear. HEART: S1, S2. ABDOMEN: Soft. Bowel sounds present. EXTREMITIES: Bilateral lower extremities, with Jb wrap. ASSESSMENT: 1. Bilateral lower extremities, acute on chronic cellulitis with chronic venous stasis. 2. Wound culture growing multiple bacteria's. 3. Coronary artery disease with history of coronary artery bypass graft and coronary angioplasty with stent. 4. Ischemic cardiomyopathy. 5. Obesity. 6. Acute possibly on chronic kidney disease. PLAN: The patient remains stable. We will keep him on IV vancomycin for now. We will start him on Levaquin to cover Enterobacter and Enterobacter cloaca that he is growing in his wounds. Await for final cultures. Keep lower extremities elevated. Consider arterial study and podiatry evaluation. Dictated By: Doc Ward NP /pepper/nikos /Document#: [id number]
[2017-05-11 19:37] VITALS: BP 97/61; RESP 20
[2017-05-11] MEDS: ATORVASTATIN 40 MG TAB PO SCH (20:22)
[2017-05-12 01:53] VITALS: BP 114/86; RESP 20
[2017-05-12] MEDS: LEVOFLOXACIN 500 MG TAB PO SCH (05:59)
[2017-05-12] MEDS: OXYCODONE/ACETAMINOPHEN (10/325) TAB PO PRN ×2 (06:00→15:28)
[2017-05-12] MEDS: FUROSEMIDE 20 MG TAB PO SCH ×2 (06:01→17:29)
[2017-05-12] MEDS: TERBINAFINE 250 MG TAB PO SCH ×2 (08:11→20:18)
[2017-05-12] MEDS: CLOPIDOGREL 75 MG TAB PO SCH (08:12)
[2017-05-12] MEDS: LOSARTAN 25 MG TAB PO SCH (08:12)
[2017-05-12] MEDS: ASPIRIN (EC) 81 MG TAB PO SCH (08:13)
[2017-05-12] MEDS: SPIRONOLACTONE 25 MG TAB PO SCH (08:13)
[2017-05-12] MEDS: SILVER SULFADIAZINE 1% 25 GM CR TOP SCH (08:14)
[2017-05-12] MEDS: HEPARIN 5,000 UNIT/0.5 ML VIAL SC SCH ×2 (08:16→20:41)
[2017-05-12 08:44] VITALS: BP 127/83; RESP 20
[2017-05-12] MEDS: VANCOMYCIN 1.5 GM in SOD CHLORIDE 0.9% 250 ML IVPB SCH (09:54)
--- NOTE | 2017-05-12 11:59 | RADRPT ---
PROCEDURE: US bilateral lower extremity arteries. CLINICAL INDICATION: Bilateral leg pain. Bilateral nonhealing lower extremity ulcers. TECHNIQUE: Multiple longitudinal and transverse images of the bilateral lower extremity arteries w ere obtained with hare scale, pulsed Doppler, and color Doppler imaging. COMPARISON: No prior studies are available for comparison. FINDINGS: Right FRAME CARVER SPINDLE:106 cm/sec PSFA:99 cm/sec MSFA:101 cm/sec DSFA:95 cm/sec POP:92 cm/sec CAMPAIGN MARKETING MANAGER:57 cm/sec DPA:24 cm/sec Left FRAME CARVER SPINDLE:93 cm/sec PSFA:94 cm/sec MSFA:79 cm/sec DSFA:107 cm/sec POP:79 cm/sec CAMPAIGN MARKETING MANAGER:62 cm/sec DPA:11 cm/sec The right ankle-brachial index is 1.1 and the left ankle-brachial index is 1.1. There is abnormal monophasic flow throughout I laterally. IMPRESSION: 1. No significant stenosis demonstrated in the lower extremity arteries. However, there is abnorma l flow bilaterally consistent with aorto iliac disease. Correlation with CT angiogram of the abdomi nal aorta and lower extremities is advised. RPTAT: QQ .Jose Holder MD, MD Date Time Electronically viewed and signed by .Jose Holder MD, on 05/12/2017 11:58 .R/
--- NOTE | 2017-05-12 14:40 | PN ---
Date/Time of Note Date/Time of Note DATE: 05/12/17 TIME: 14:37 Assessment/Plan VTE Prophylaxis VTE Prophylaxis Intervention: SCD's Lines/Catheters IV Catheter Type (from Nrsg): Saline Lock Urinary Cath still in place: No Assessment/Plan Assessment/Plan Assessment/Plan 51 yo M with chronic LE ulcers admitted for chronic LE ulcers PLAN wound care following vascular cs for eval for venous eval as etio of chronic wounds unclear (?venous stasis) cont pain control CM consult for home health #chronic CHF: EF here 30% cont home meds as EF not different from baseline, no compelling indication for inpatient cardiology eval cont home meds dc in AM pending workforce management consultant recs Subjective 24 Hr Interval Summary Free Text/Dictation Sleeping this AM Exam/Review of Systems Vital Signs Vitals Vital Signs Date Time Temp Pulse Resp B/P Pulse Ox O2 Delivery O2 Flow Rate FiO2 05/12/17 08:44 98.2 105 20 127/83 94 05/09/17 02:41 Room Air Intake and Output 05/11/17 05/11/17 05/12/17 15:00 23:00 07:00 Intake Total 250 ml 1200 ml 980 ml Output Total 900 ml 650 ml Balance 250 ml 300 ml 330 ml Exam sleeping resp nonlabored no gross abd distension no rashes legs covered Results Result Diagram: 05/10/17 0744 05/11/17 0520 Medications Medications Current Medications Ondansetron HCl (Zofran Inj) 4 mg Q6H PRN IV NAUSEA AND/OR VOMITING Last administered on 05/09/17 08:55; Admin Dose 4 MG; Start 05/09/17 at 03:30 Nitroglycerin (Nitroglycerin (Sl Tab) 0.4 Mg) 1 tab Q5M PRN SL CHEST PAIN; Start 05/09/17 at 03:30 Acetaminophen (Tylenol Tab) 650 mg Q6H PRN PO PAIN LEVEL 1-3 OR FEVER; Start at 03:30 Magnesium Hydroxide (Milk Of Mag) 30 ml DAILY PRN PO CONSTIPATION Last administered on 05/11/17 17:35; Admin Dose 30 ML; Start 05/09/17 at 03:30 Heparin Sodium (Porcine) (Heparin (5000 Units/0.5 ml)) 5,000 unit Q12 SC Last administered on 05/09/17 20:26; Admin Dose 5,000 UNIT; Start 05/09/17 at 09:00 Aspirin (Halfprin) 81 mg DAILY PO Last administered on 05/12/17 08:13; Admin Dose 81 MG; Start 05/09/17 at 09:00 Clopidogrel Bisulfate (plaVIX) 75 mg DAILY PO Last administered on 05/12/17 08 :12; Admin Dose 75 MG; Start 05/09/17 at 09:00 Losartan Potassium (Cozaar) 25 mg DAILY PO Last administered on 05/12/17 08:12 ; Admin Dose 25 MG; Start 05/09/17 at 09:00 Oxycodone/ Acetaminophen (Endocet (10/ 325)) 1 tab Q6H PRN PO PAIN Last administered on 05/12/17 06:00; Admin Dose 1 TAB; Start 05/09/17 at 04:00 Atorvastatin Calcium (Lipitor) 40 mg HS PO Last administered on 05/11/17 20:22 ; Admin Dose 40 MG; Start 05/09/17 at 21:00 Carvedilol (Coreg) 6.25 mg BID PO Last administered on 05/12/17 08:14; Admin Dose 6.25 MG; Start 05/09/17 at 21:00 Spironolactone (Aldactone) 25 mg DAILY PO Last administered on 05/12/17 08:13 ; Admin Dose 25 MG; Start 05/10/17 at 09:00 Terbinafine HCl (Lamisil) 250 mg BID PO Last administered on 05/12/17 08:11; Admin Dose 250 MG; Start 05/09/17 at 21:00; Stop 05/16/17 at 20:59 Miscellaneous Information Patients own medicat... BID@10,16 XX Last administered on 05/12/17 09:55; Admin Dose 1 EA; Start 05/10/17 at 10:00 Silver Sulfadiazine 1 applic 1 applic BID TOP Last administered on 05/12/17 08 :14; Admin Dose 1 APPLIC; Start 05/10/17 at 15:00 Vancomycin HCl/ Sodium Chloride (Vancocin/NS) 250 ml @ 83.333 mls/ hr Q24H IVPB Last administered on 05/12/17 09:54; Admin Dose 83.333 MLS/HR; Start at 09:00 Levofloxacin (Levaquin) 500 mg DAILY@06 PO Last administered on 05/12/17t 05:59 ; Admin Dose 500 MG; Start 05/12/17 at 06:00 LI GOODWIN MD May 12, 2017 14:40
[2017-05-12 15:40] VITALS: BP 123/80; RESP 20
[2017-05-12] MEDS ORDERED: LIDOCAINE 2% VISC 15 ML CUP PO PRN (18:00)
--- NOTE | 2017-05-12 19:46 | PN ---
DATE: 05/12/2017 SUBJECTIVE DATA: No events overnight. The patient is alert, sitting up in bed, looks comfortable. No fevers. LABORATORY AND DIAGNOSTIC DATA: No labs this morning. Microbiology: Wound culture of the lower extremities growing Citrobacter, Acinetobacter baumannii and coag-negative staph species. Vancomycin level 26.1 on May 10. ANTIMICROBIALS: 1. Vancomycin. 2. Levaquin. PHYSICAL EXAMINATION: GENERAL: This is obese, well developed, middle-aged, white man, who is awake, in no distress. HEENT: Head atraumatic, normocephalic. Sclerae anicteric. Buccal mucosa pink. NECK: Supple. CHEST: Rise symmetrical. Breath sounds diminished at bases. HEART: S1, S2. ABDOMEN: Soft, bowel sounds present. EXTREMITIES: With bilateral lower extremity severe edema, erythema and multiple wounds. ASSESSMENT: 1. Acute bilateral lower extremity cellulitis with wound culture growing multiple organisms. 2. Bilateral lower extremities chronic venous stasis. 3. Peripheral vascular disease. 4. Morbid obesity. 5. Ischemic cardiomyopathy. 6. Acute possibly on chronic kidney disease. PLAN: The patient remains stable on appropriate antimicrobials. We will continue him on current regimen. Encourage lower extremity elevation. Consider podiatry evaluation and vascular team evaluation. Dictated By: Doc Ward NP /pepper/haley /Document#: [id number]
[2017-05-12 19:52] VITALS: BP 109/66; RESP 20
[2017-05-12] MEDS: ATORVASTATIN 40 MG TAB PO SCH (20:18)
[2017-05-12] MEDS: GENTAMICIN 0.1% 15 GM OINT TOP SCH (20:18)
[2017-05-12] MEDS: MAGNESIUM HYDROXIDE 30ML CUP PO PRN (20:23)
[2017-05-13 02:01] VITALS: BP 102/71; RESP 20
[2017-05-13] MEDS: OXYCODONE/ACETAMINOPHEN (10/325) TAB PO PRN ×3 (02:03→18:23)
[2017-05-13] MEDS: LEVOFLOXACIN 500 MG TAB PO SCH (05:46)
[2017-05-13] MEDS: FUROSEMIDE 20 MG TAB PO SCH ×2 (05:47→18:00)
[2017-05-13 08:05] VITALS: BP 114/82; RESP 20
[2017-05-13] MEDS: ASPIRIN (EC) 81 MG TAB PO SCH (08:39)
[2017-05-13] MEDS: CLOPIDOGREL 75 MG TAB PO SCH (08:39)
[2017-05-13] MEDS: TERBINAFINE 250 MG TAB PO SCH (08:40)
[2017-05-13] MEDS: SPIRONOLACTONE 25 MG TAB PO SCH (08:40)
[2017-05-13] MEDS: LOSARTAN 25 MG TAB PO SCH (08:40)
[2017-05-13] MEDS: VANCOMYCIN 1.5 GM in SOD CHLORIDE 0.9% 250 ML IVPB SCH (08:42)
[2017-05-13] MEDS: HEPARIN 5,000 UNIT/0.5 ML VIAL SC SCH (08:44)
[2017-05-13] MEDS: GENTAMICIN 0.1% 15 GM OINT TOP SCH ×2 (08:45→13:28)
[2017-05-13 14:00] VITALS: BP 117/70; RESP 18
--- NOTE | 2017-05-13 14:11 | CONS ---
Date/Time of Note Date/Time of Note DATE: 05/13/17 TIME: 14:09 Assessment/Plan Assessment/Plan Chief Complaint/Hosp Course SUBJECTIVE DATA: No events overnight. The patient is alert, sitting up in bed , looks comfortable. No fevers. LABORATORY AND DIAGNOSTIC DATA: No labs this morning. Microbiology: Wound culture of the lower extremities growing Citrobacter, Acinetobacter baumannii and coag-negative staph species. Vancomycin level 26.1 on May 10. ANTIMICROBIALS: 1. Vancomycin. 2. Levaquin. PHYSICAL EXAMINATION: GENERAL: This is obese, well developed, middle-aged, white man, who is awake, in no distress. HEENT: Head atraumatic, normocephalic. Sclerae anicteric. Buccal mucosa pink. NECK: Supple. CHEST: Rise symmetrical. Breath sounds diminished at bases. HEART: S1, S2. ABDOMEN: Soft, bowel sounds present. EXTREMITIES: With bilateral lower extremity severe edema, erythema and multiple wounds. ASSESSMENT: 1. Acute on chronic bilateral lower extremity cellulitis with wound culture growing multiple organisms. 2. Bilateral lower extremities chronic venous stasis. 3. Peripheral vascular disease. 4. Morbid obesity. 5. Ischemic cardiomyopathy. 6. Acute possibly on chronic kidney disease. PLAN: The patient remains stable, inue abx, elevation, await for vascular and podiatry evaluation [facility] staff Problems: Consultation Date/Type/Reason Admit Date/Time May 09, 2017 at 02:20 Initial Consult Date 05/09/17 Type of Consultation: ID Exam/Review of Systems Vital Signs Vitals Vital Signs Date Time Temp Pulse Resp B/P Pulse Ox O2 Delivery O2 Flow Rate FiO2 05/13/17 08:05 97.3 87 20 114/82 92 Intake and Output 05/12/17 05/12/17 05/13/17 15:00 23:00 07:00 Intake Total 1210 ml 360 ml Output Total 700 ml 450 ml Balance 510 ml -90 ml Results Result Diagram: 05/10/17 0744 05/11/17 0520 Medications Medications Current Medications Ondansetron HCl (Zofran Inj) 4 mg Q6H PRN IV NAUSEA AND/OR VOMITING Last administered on 05/09/17t 08:55; Admin Dose 4 MG; Start 05/09/17 at 03:30 Nitroglycerin (Nitroglycerin (Sl Tab) 0.4 Mg) 1 tab Q5M PRN SL CHEST PAIN; Start 05/09/17 at 03:30 Acetaminophen (Tylenol Tab) 650 mg Q6H PRN PO PAIN LEVEL 1-3 OR FEVER; Start at 03:30 Magnesium Hydroxide (Milk Of Mag) 30 ml DAILY PRN PO CONSTIPATION Last administered on 05/12/17 20:23; Admin Dose 30 ML; Start 05/09/17 at 03:30 Heparin Sodium (Porcine) (Heparin (5000 Units/0.5 ml)) 5,000 unit Q12 SC Last administered on 05/09/17 20:26; Admin Dose 5,000 UNIT; Start 05/09/17 at 09:00 Aspirin (Halfprin) 81 mg DAILY PO Last administered on 05/13/17 08:39; Admin Dose 81 MG; Start 05/09/17 at 09:00 Clopidogrel Bisulfate (plaVIX) 75 mg DAILY PO Last administered on 05/13/17 08 :39; Admin Dose 75 MG; Start 05/09/17 at 09:00 Losartan Potassium (Cozaar) 25 mg DAILY PO Last administered on 05/13/17 08:40 ; Admin Dose 25 MG; Start 05/09/17 at 09:00 Oxycodone/ Acetaminophen (Endocet (10/ 325)) 1 tab Q6H PRN PO PAIN Last administered on 05/13/17 08:41; Admin Dose 1 TAB; Start 05/09/17 at 04:00 Atorvastatin Calcium (Lipitor) 40 mg HS PO Last administered on 05/12/17 20:18 ; Admin Dose 40 MG; Start 05/09/17 at 21:00 Carvedilol (Coreg) 6.25 mg BID PO Last administered on 05/13/17 08:40; Admin Dose 6.25 MG; Start 05/09/17 at 21:00 Spironolactone (Aldactone) 25 mg DAILY PO Last administered on 05/13/17 08:40 ; Admin Dose 25 MG; Start 05/10/17 at 09:00 Terbinafine HCl (Lamisil) 250 mg BID PO Last administered on 05/13/17 08:40; Admin Dose 250 MG; Start 05/09/17 at 21:00; Stop 05/16/17 at 20:59 Miscellaneous Information Patients own medicat... BID@ XX Last administered on 05/12/17 15:52; Admin Dose 1 EA; Start 05/10/17 at 10:00 Vancomycin HCl/ Sodium Chloride (Vancocin/NS) 250 ml @ 83.333 mls/ hr Q24H IVPB Last administered on 05/13/17 08:42; Admin Dose 83.333 MLS/HR; Start at 09:00 Levofloxacin (Levaquin) 500 mg DAILY@06 PO Last administered on 05/13/17 05:46 ; Admin Dose 500 MG; Start 05/12/17 at 06:00 Gentamicin Sulfate (Gentamicin 0.1% Oint) 1 applic TID TOP Last administered on 05/13/17 13:28; Admin Dose 1 APPLIC; Start 05/12/17 at 21:00 Lidocaine (Xylocaine (Viscous)) 15 ml QID PRN PO sore tongue Last administered on 05/12/17 20:19; Admin Dose 15 ML; Start 05/12/17 at 18:00 Miscellaneous Information (*Rx Drug Level Order Reminder*) VANCOMYCIN TROUGH ON 04/21... ONCE ONCE XX ; Start 05/14/17 at 08:00; Stop 05/14/17 at 08:01 KERRIE CUELLAR NP May 13, 2017 14:10
[2017-05-13] MEDS ORDERED: TERB250T46 PO (16:11)
[2017-05-13] MEDS ORDERED: LAS20 PO (16:11)
[2017-05-13] MEDS ORDERED: LEVO500T72 PO (16:11)
--- NOTE | 2017-05-13 17:16 | PDOCDIS ---
Discharge Instructions DIAGNOSIS Discharge Diagnosis chronic leg wounds CONDITION Patient Condition: Stable HOME CARE INSTRUCTIONS: Special Diet: low fat, low chol FOLLOW UP/APPOINTMENTS Follow-up Plan Follow up within 1 week with your primary care doctor. If you do not have a primary care doctor, call your Health Insurance provider, [facility] [place]: [phone] Your health plan will contact you with new cardiologists and podiatrists. Follow up with the infectious disease doctor within 10 days: Dr Pedro Office Address [address] [address] Office Please schedule an appointment with the vascular surgeon, Dr Izquierdo Office Address [address] [address] Office LI GOODWIN MD May 13, 2017 17:15
--- NOTE | 2017-05-13 17:18 | DS ---
Date/Time of Note Date/Time of Note DATE: 05/13/17 TIME: 17:15 Discharge Summary Admission/Discharge Info Admit Date/Time May 09, 2017 at 02:20 Discharge Date/Time Discharge Diagnosis chronic leg wounds, chronic systolic heart failure, onychomycosis Patient Condition: Stable Consults infectious disease, vascular surgery Procedures 8.23 LE arterial studies (ordered by vascular surgery) IMPRESSION: 1. No significant stenosis demonstrated in the lower extremity arteries. However, there is abnormal flow bilaterally consistent with aorto iliac disease. Correlation with CT angiogram of the abdominal aorta and lower extremities is advised. 8.21 LE dopplers: no DVT bl 8.20 TTE Conclusions 1. Normal left ventricular systolic function. Normal left ventricular cavity size. Mild concentric left ventricular hypertrophy. Moderate global left ventricular systolic dysfunction. Ejection fraction is visually estimated at 30 %. Abnormal Diastolic Function. 2. Mild mitral leaflet calcification. Mild mitral annular calcification. Mild to moderate mitral valve regurgitation. 3. Normal appearance of the aortic valve. No significant aortic stenosis or insufficiency. 4. Normal appearance of the tricuspid valve. Estimated peak PA systolic pressure 33 mmHg. There is mild to moderate tricuspid regurgitation. 5. Normal pericardium with no significant pericardial effusion. Hx of Present Illness This is a 51-year-old male with a history of CAD with CABG, PTCA with stent 7, ischemic cardiomyopathy with EF of 25-30% (per patient). Patient initially presented to an outside hospital complaining of bilateral lower extremity infection, pain and itching. He was transferred to [facility] for insurance reasons. He said in July of last year, he noticed redness, scaling as well as open wounds with yellowish draining fluid in the proximal part of both shins that has been progressively getting worse and now includes the entire shins. He said he has been treated by different doctors ( mainly because of insurance reasons) with initial improvement of the infection, however now it has been progressively getting worse. He was diagnosed with a staph infection. He reported pain and intractable itching which he states only responds to Thayer or similar medication but not Benadryl. Because of pain, he has been using a wheelchair. At the outside hospital, labs shows a BUN of 21, creatinine 1.43. He was afebrile and her WBC was 7.2. Chest x-ray, per the ER physician showed pulmonary vascular congestion. BNP was 1608. He reported chronic shortness of breath is, worse on exertion. Denied chest pain, fever/chills, nausea/vomiting. . Hospital Course Pt admitted for chronic leg wounds. Pt seen by ID, thought there was an element of cellulitis. Pt started on abx. Suspect pt's wounds are multifactorial in origin, stemming from undertreated chronic systolic HF (pt not on diuretics at home), likely chronic venous stasis and poor foot hygiene. TTE with EF unchanged from patient's reported baseline. Pt discharged with wound care, and needs to follow up with vascular, podiatry , ID, cardiology and PCP. Pt also started on terbafine by ID for bl toenail fungus Home Meds Active Scripts Furosemide (Lasix) 20 Mg Tab, 20 MG PO BID DIURETICS for 14 Days, #28 TAB Prov:LI GOODWIN MD 05/13/17 Terbinafine* (Lamisil*) 250 Mg Tablet, 250 MG PO BID for 14 Days, #28 TAB Prov:LI GOODWIN MD 05/13/17 Levofloxacin* (Levaquin*) 500 Mg Tablet, 500 MG PO DAILY@06 for 14 Days, #14 TAB Prov:LI GOODWIN MD 05/13/17 Oxycodone HCl/Acetaminophen (Percocet 10-325 mg Tablet) 1 Each Tablet, 1 EACH PO Q6, #7 TAB Prov:ALBERTINA OSBORNE MD 05/06/17 Clindamycin Hcl* (Clindamycin Hcl*) 300 Mg Capsule, 300 MG PO TID for 10 Days, CAP Prov:ESE VIDES NP 04/26/17 Oxycodone HCl/Acetaminophen (Percocet 10-325 mg Tablet) 1 Each Tablet, 1 EACH PO Q6, #15 TAB Prov:ESE VIDES NP 04/26/17 Reported Medications Metoprolol (Lopressor) 100 Mg Tablet, PO BID 03/20/12 [Crestor] 10 MG TABLET No Conflict Check 06/20/10 Losartan Potassium* (Cozaar*) 25 Mg Tablet 06/20/10 Aspirin Ec (Aspir 81) 81 Mg Tablet. 06/20/10 Clopidogrel Bisulfate (Plavix) 75 Mg Tablet 06/20/10 Follow-up Plan ID, podiatry, vascular, PCP, cardiology Primary Care Provider [facility] Time spent on discharge: > 30 minutes Copies To: CC: GORGE HATHAWAY MD, ELLEN MD May 13, 2017 17:18
== END 2017-05-13 20:00 | disposition home health service (06) | DRG 603 ==
LOC: MS4 05-09 02:20 → MS2 05-10 19:40
PROVIDERS: ADMIT Internal Medicine; ATTEND Internal Medicine
DX: L03.116 Cellulitis of left lower limb (principal); N17.9 Acute kidney failure, unspecified; I50.22 Chronic systolic (congestive) heart failure; L97.819 Non-pressure chronic ulcer of other part of right lower leg with unspecified severity; I25.10 Atherosclerotic heart disease of native coronary artery without angina pectoris; E66.01 Morbid (severe) obesity due to excess calories; I25.5 Ischemic cardiomyopathy; B35.1 Tinea unguium; L97.829 Non-pressure chronic ulcer of other part of left lower leg with unspecified severity; I87.8 Other specified disorders of veins; Z95.1 Presence of aortocoronary bypass graft; L03.115 Cellulitis of right lower limb; Z95.5 Presence of coronary angioplasty implant and graft; I73.9 Peripheral vascular disease, unspecified
CPT/HCPCS: 71020; 80048; 80053; 80061; 80202; 83036; 83735; 83880; 84100; 84484; 85025; 87040; 87070; 87081; 93306; 93922; 93970; J0692; J1644; J2405; J3370; J7040; J7050; P9047